=== PATIENT | male | born 1990 | race African-American/Black ===

== ENCOUNTER 2022-03-04 20:27 | Emergency (ER) | payer OTHER | END 2022-03-04 22:12 | disposition home or self-care (01) | LOC: CSHERS 20:27 | DX: M25.571 Pain in right ankle and joints of right foot (principal); R60.0 Localized edema ==

== ENCOUNTER 2025-04-24 14:25 | Emergency (ER) | payer OTHER, SELFPAY ==
[2025-04-24] MEDS ORDERED: Ketorolac Tromethamine 30 MG (1 mL) VIAL ONE (15:19)
== END 2025-04-24 17:30 | disposition home or self-care (01) ==
LOC: CSHERS 14:25
DX: M54.2 Cervicalgia (principal); M25.511 Pain in right shoulder; M25.512 Pain in left shoulder; R29.91 Unspecified symptoms and signs involving the musculoskeletal system; V89.2XXA Person injured in unspecified motor-vehicle accident, traffic, initial encounter; W22.10XA Striking against or struck by unspecified automobile airbag, initial encounter
CPT/HCPCS: 70450; 71045; 72125; 96372; J1885